=== PATIENT | female | born 1940 | race Caucasian/White ===

== ENCOUNTER → 2018-06-18 | Outpatient (CLI) | payer OTHER ==
--- NOTE | 2018-06-18 14:25 | 2DMMODE ---
[facility] [address] [place] [address] 2 D/M-MODE ECHOCARDIOGRAM Name: JAJABOOKER W Room #: [facility]#: [id number] Admission: 06/18/18 Attend Phys: Abbe Long Discharge: Date of : 44 Date of Service: 06/18/18 1425 Report #: [id number] THIS REPORT FOR: //name// APPROVED REPORT Study performed: 06/18/2018 13:05:09 EXAM: Comprehensive 2D, Doppler, and color-flow Echocardiogram Patient Location: Out-Patient Room #: Echo lab 2 Status: routine BSA: 1.81 HR: 65 bpm BP: 142/86 mmHg Rhythm: NSR Other Information Study Quality: Adequate Indications Atrial Fibrillation 2D Dimensions IVSd: 8.32 (7-11mm) LVOT Diam: 17.68 (18-24mm) LVDd: 44.84 mm PWd: 6.91 (7-11mm) Ascending Ao: 26.64 (22-36mm) LVDs: 29.02 (25-40mm) Aortic Root: 26.53 mm IVC: 18.00 mm Volumes Left Atrial Volume (Systole) Single Plane 4CH: 25.95 mL Single Plane 2CH: 69.27 mL LA ESV Index: 27.00 mL/m2 Aortic Valve AoV Peak Samir.: 1.72 m/s AO Peak Gr.: 11.83 mmHg LVOT Max P.83 mmHg LVOT Max V: 1.10 m/s DAVID Vmax: 1.57 cm2 Mitral Valve E/A Ratio: 0.8 MV Decel. Time: 203.23 ms MV E Max Samir.: 0.90 m/s MV A Samir.: 1.17 m/s [facility] [address] [place] [address] 2 D/M-MODE ECHOCARDIOGRAM Name: BOOKER WILKINSON Room #: [facility]#: [id number] Admission: 06/18/18 Attend Phys: Abbe Long Discharge: Date of : 44 Date of Service: 06/18/18 1425 Report #: [id number] MV PHT: 58.94 ms IVRT: 101.50 ms Pulmonary Valve PV Peak Samir.: 1.18 m/s PV Peak Gr.: 5.58 mmHg Pulmonary Vein P Vein S: 0.52 m/s P Vein A: 0.34 m/s P Vein D: 0.41 m/s P Vein A Dur.: 115.3 msec P Vein S/D Ratio: 1.27 Tricuspid Valve TR Peak Samir.: 2.76 m/s TR Peak Gr.: 30.47 mmHg PA Pressure: 35.00 mmHg Left Ventricle The left ventricle is normal size. There is normal left ventricular wall thickness. The left ventricular systolic function is normal. The left ventricular ejection fraction is within the normal range. LVEF is 55-60%. Grade I - abnormal relaxation pattern. Right Ventricle The right ventricle is normal size. The right ventricular systolic function is normal. Atria The left atrium size is normal. The right atrium size is normal. Aortic Valve The aortic valve is normal in structure. No aortic regurgitation is present. There is no aortic valvular stenosis. Mitral Valve The mitral valve is normal in structure. There is no mitral valve regurgitation noted. No evidence of mitral valve stenosis. Tricuspid Valve The tricuspid valve is normal in structure. There is mild tricuspid regurgitation. Estimated PAP 35 mmHg. There is mild pulmonary hypertension. Pulmonic Valve The pulmonary valve is normal in structure. Trace pulmonic regurgitation. [address] [address] 2 D/M-MODE ECHOCARDIOGRAM Name: BOOKER WILKINSON Room #: REG Stanislav#: [id number] Admission: 06/18/18 Attend Phys: Abbe Long Discharge: Date of : 44 Date of Service: 06/18/18 1425 Report #: [id number] Great Vessels The aortic root is normal in size. IVC is normal in size and collapses >50% with inspiration. Pericardium There is no pericardial effusion. <Conclusion> The left ventricle is normal size. There is normal left ventricular wall thickness. The left ventricular systolic function is normal. Grade I - abnormal relaxation pattern. The right ventricle is normal size. The left atrium size is normal. The aortic valve is normal in structure. There is no mitral valve regurgitation noted. There is mild tricuspid regurgitation. Estimated PAP 35 mmHg. There is mild pulmonary hypertension. <ELECTRONICALLY SIGNED> By: Gavino Ware MD 06/18/18 1425 1425 1425 Gavino Ware MD /INF
== END ==
LOC: CV 09:07
DX: I07.1 Rheumatic tricuspid insufficiency (principal); I27.20 Pulmonary hypertension, unspecified; I48.0 Paroxysmal atrial fibrillation

== ENCOUNTER → 2019-07-01 | Outpatient (CLI) | payer OTHER | LOC: SJCVC 12:58 | DX: I48.0 Paroxysmal atrial fibrillation (principal); E03.9 Hypothyroidism, unspecified; Z79.899 Other long term (current) drug therapy ==

== ENCOUNTER → 2020-07-06 | Outpatient (CLI) | payer OTHER | LOC: SJCVC 16:35 | PROVIDERS: ATTEND Internal Medicine Cardiovascular Disease | DX: R00.1 Bradycardia, unspecified (principal); I48.0 Paroxysmal atrial fibrillation; E03.9 Hypothyroidism, unspecified; Z79.899 Other long term (current) drug therapy; Z72.89 Other problems related to lifestyle; Z88.1 Allergy status to other antibiotic agents; Z88.5 Allergy status to narcotic agent; Z88.0 Allergy status to penicillin ==

== ENCOUNTER → 2021-05-04 | Outpatient (CLI) | payer OTHER | LOC: NUC 09:59 → BC 11:07 | PROVIDERS: ATTEND Family Medicine | DX: M85.89 Other specified disorders of bone density and structure, multiple sites (principal); Z78.0 Asymptomatic menopausal state ==